=== PATIENT | male | born 1980 | race Caucasian/White ===

== ENCOUNTER 2024-04-05 08:26 | Emergency (ER) | payer OTHER, SELFPAY ==
[2024-04-05] MEDS ORDERED: Ibuprofen 200 MG TAB ONE (09:07)
[2024-04-05] MEDS ORDERED: Gabapentin 100 MG CAP PO SCH (09:30)
[2024-04-05 09:32] LABS: #Basophils Less than 0.03 10x3/uL (0.0-0.2); #Eosinophils 0.06 10x3/uL (0.0-0.5); #Monocytes 0.68 10x3/uL (0.0-1.1); #Neutrophils 3.64 10x3/uL (1.5-8.4); %Basophils 0.4 % (0.0-2.0); %Eosinophils 1.2 % (0.0-6.0); %Lymphocytes 10.5 % (18.0-47.0); %Monocytes 13.8 % (0.0-10.0); %Neutrophils 73.9 % (40.0-75.0); Hematocrit 47.5 % (38.8-50.0); Hemoglobin 16.6 g/dL (13.5-17.5); Mean Corpuscular HGB CONC 34.9 g/dL (32.0-36.0); Mean Corpuscular Volume 88.8 fL (81.2-95.1); Mean Platelet Volume 10.4 fL (7.4-10.4); Platelet Count 172 10x3/uL (150-450); RBC Distribution Width 11.4 % (11.5-14.5); Red Blood Cell (RBC) Count 5.35 10x6/uL (4.32-5.72); White Blood Cell (WBC) Count 4.93 10x3/uL (3.5-10.5)
[2024-04-05 09:53] LABS: ALT (SGPT) 106 U/L (8-55); AST (SGOT) 57 U/L (5-34); Albumin 3.8 g/dL (3.5-5.0); Alkaline Phosphatase 146 U/L (40-110); Anion Gap 20 mmol/L (10-20); BUN (Urea Nitrogen) 7 mg/dL (8.9-20.6); Bilirubin, Total 0.8 mg/dL (0.2-1.2); Calc. Creatinine Clearance 0 mL/min (70-130); Calcium 9.7 mg/dL (7.8-10.44); Carbon Dioxide 22 mmol/L (22-29); Chloride 97 mmol/L (98-107); Estimated GFR 117; Globulin 3.5 g/dL (2.4-3.5); Glucose 302 mg/dL (70-105); Potassium 4.4 mmol/L (3.5-5.1); Protein, Total 7.3 g/dL (6.0-8.3); Sodium 135 mmol/L (136-145)
[2024-04-05 09:59] LABS: Troponin I Less than 0.010 ng/mL (< 0.028)
== END 2024-04-05 11:56 | disposition home or self-care (01) ==
LOC: CSHERS 08:26
DX: E11.40 Type 2 diabetes mellitus with diabetic neuropathy, unspecified (principal); E11.65 Type 2 diabetes mellitus with hyperglycemia; Z59.86 Financial insecurity
CPT/HCPCS: 36415; 36416; 80053; 82010; 83605; 83880; 84443; 84484; 85025; 86140; 99284